=== PATIENT | male | born 1965 | race Caucasian/White ===

== ENCOUNTER 2023-08-22 06:03 | Day surgery (SDC) | payer OTHER, SELFPAY ==
[2023-08-14 10:00] VITALS: BMI 25.7
[2023-08-14 10:23] LABS: % Basophils 0.6 % (0-2); % Eosinophils 0.8 % (0-6); % Immature Granulocytes 0.4 % (0-0.5); % Lymphocytes 24.4 % (20.5-51.1); % Monocytes 8.7 % (1.7-9.3); % Neutrophils 65.1 % (42.2-75.2); Absolute Lymphocytes 1.3 10^3/uL (1.2-3.4); Absolute Monocytes 0.5 10^3/uL (0.1-0.6); Absolute Neutrophils 3.5 10^3/uL (1.4-6.5); Hematocrit 46.8 % (39.0-52.0); Mean Corp Hgb Conc. 34.2 g/dL (33.0-37.0); Mean Corpuscular Hgb 29.5 pg (27.0-31.0); Mean Corpuscular Volume 86.3 fL (80.0-94.0); Mean Platelet Volume 10.2 fL (7.4-10.4); Nucleated Red Blood Cells % 0 % (-); Platelet Count 235 10^3/uL (130-400); Red Blood Cell Count 5.42 10^6/uL (4.70-6.10); Red Cell Dist. Width 11.9 % (11.5-14.5); White Blood Cell Count 5.3 10^3/uL (4.8-10.8)
[2023-08-14 11:42] LABS: ALT (SGPT) 63 U/L (0-50); AST (SGOT) 38 U/L (17-59); Albumin 4.6 g/dl (3.5-5.0); Alkaline Phosphatase 92 U/L (38-126); Blood Urea Nitrogen 24 mg/dl (9-20); Calcium 9.7 mg/dl (8.4-10.2); Carbon Dioxide 29 mmol/L (22-30); Chloride 105 mmol/L (98-107); Estimated Creatinine Clearance 68 ml/min; Glucose 88 mg/dl (70-99); Potassium 4.6 mmol/L (3.5-5.1); Sodium 139 mmol/L (135-145); Total Bilirubin 0.8 mg/dl (0.2-1.3); Total Protein 7.3 g/dl (6.3-8.2); eGFR > 60.00
[2023-08-22] VITALS (13 sets, daily range): BP systolic 99–130; BP diastolic 65–89; BMI 25.4
[2023-08-22] MEDS: PLAVIX 600 MG PO (06:53)
[2023-08-22] MEDS: LOW STRENGTH ASPIRIN 81 MG PO (06:56)
--- NOTE | 2023-08-22 06:56 | ITS.CL.PN ---
Dishwasher - Procedure Note
Procedure
Procedure Note:
RIGHT HEART CATHETERIZATION (WITH SHUNT RUN) AND PATENT FORAMEN OVALE (PFO) CLOSURE
Date of procedure: August 22, 2023
Referring physician: Kenton Stack MD
Pre-op diagnosis: Cryptogenic stroke, presence of PFO
Post-op diagnosis: Cryptogenic stroke, presence of PFO
Indication: Cryptogenic stroke
Procedure performed: Percutaneous PFO closure with 25 mm Amplatzer Talisman PFO Occluder (REF #[id number] ; LOT #[id number])
cork sorter: Leeanne Sow MD, [facility], [facility]
Type of echocardiography: Intracardiac Echocardiography (ICE)
Access:
1.� Two 9 Cuban sheaths (9Fr x 11cm and 9Fr x 25cm) in the right common femoral vein using a micropuncture kit under US guidance.
RIGHT HEART CATHETERIZATION
Hemodynamics (mmHg):
RA (m) : 12
RV (s/d,m) : 34/9, 16
PA (s/d, m) : 31/16, 22
PCWP (m) : 15
PA saturation: 73.2% on room air
AO saturation non-invasively 95% on room air
RA saturation: 68.6% on room air
RV saturation: 72.1% on room air
PA Saturation: 73.2% on room air
High SVC Saturation: 77.6% on room air
Low SVC Saturation: 72.8% on room air
IVC Saturation: 76.8% on room air
KELLY saturation 96.8% on room air
�
Cardiac Output: 4.75 L/min by Anaya calculation
Cardiac Index : 2.63 L/min/m-2 by Anaya calculation
Pulmonary vascular resistance: 1.68 muller unit
Procedure:
The patient was brought to the interventional cardiology suite in fasting state. The patient was given 600 mg of clopidogrel and Ancef IV.� Bilateral femoral areas were prepped and draped in standard sterile fashion.
The right femoral vein was accessed about 1cm apart twice using a modified Seldinger technique and two 9 Cuban sheaths were placed 1 is below the other (short 9 Cuban by 11 cm on the top and a long 9 Cuban by 25 cm at the bottom.� Full dose IV
heparin was given to achieve an ACT greater than 300 seconds, which was maintained throughout the procedure.� After confirming that there was no step up on the shunt run by performing a right heart catheterization, ICE catheter was advanced through
the 9 Cuban by 25 cm venous sheath and basic images were obtained and saved including the view of the interatrial septum and the PFO seen by color Doppler.� Using ICE and fluoroscopy guidance, a 0.035' J wire was advanced from the right femoral
vein and up into the right atrium and a 6Fr. multipurpose catheter was advanced over this wire. The J-wire was removed and catheter was flushed.� A Ricketts wire was advanced through the multipurpose catheter and through multiple passes we attempted
to cross the PFO however were unsuccessful. At this time we switched out the Bentson wire for a angled glide wire and after multiple passes successfully were able to cross the PFO into the left atrium. The multipurpose catheter was advanced over
the angled Glidewire wire into the left upper pulmonary vein. The Glidewire was removed and the catheter was flushed.� A 0.035 superstiff Amplatz wire was advanced through the multipurpose catheter and into the left upper pulmonary vein.
The multipurpose catheter was removed. The 9 Cuban sheath was removed.� Based on the anatomy we decided to move forward with implantation of a 25 mm Amplatzer Talisman PFO Occluder device. On the back table, we turned our attention to prepping the
closure device. A 25 mm Amplatzer Talisman PFO Occluder device was placed in a bowl of heparinized saline. The Tuohy-Addie valve and its extension were appropriately flushed. The device was submerged in water and the valve and extension were slowly
flush with water while the occlusion device was retracted into it, ensuring that the device was completely de-aired.
The 8 Cuban Talisman delivery sheath was advanced over the Super Stiff Amplat'sz wire into the IVC. The dilator was retracted at this point to completely de-aired the system. The sheath itself was then advanced over the Super Stiff Amplatz wire
into the left atrium and the Super Stiff wire was taken out. The sheath was de-aired and flushed. We connected the sheath with the closure device assembly with a wet to wet connection. The occluder was advanced through the sheath and into the left
atrium. Left atrial disc was deployed. The entire assembly was retracted until the left atrial disc was firmly against the interatrial wall under fluoroscopy and ICE guidance. The right atrial disc was deployed under tension and allowed to settle on
the right atrial side of the septum.
Echocardiographic images were obtained in multiple views showing good placement of the occlusion device. The interatrial septum is clearly visible between the 2 discs. The discs do not appear to be interfering with the aorta. After performing
appropriate pushing and pulling of the device to ensure good placement ([place] wiggle), the device was released. Once again, echocardiography confirmed good placement. ICE catheter was then taken out.
The Talisman sheath and the 9Fr x 25mm sheath was removed from the right femoral vein and a [id number] suture was placed over access site with good hemostasis. Additional manual pressure was held for 10 minutes.� The patient tolerated the
procedure well with no acute complications.� He remained hemodynamically stable throughout the procedure.
Fluoro Time: 22.8 min, Dose: 122.86 mGy, DAP : 17.9 Gy.cm2
SEDATION: 97 minutes of procedural sedation was utilized. An independent medical screener was present to assist with and help manage the patient's level of consciousness and physiologic status.
Conclusions:
1.� Successful ICE guided percutaneous PFO closure with 25 mm Amplatzer Talisman PFO Occluder (REF #[id number] ; LOT #[id number]) with no acute complications.
Recommendations:
1.� Routine care post PFO closure.�
2.� Limited weight bearing for 2 days.
3.� DAPT with aspirin and clopdiogrel for 6 months, followed by aspirin indefinitely.
4.� Limited echocardiogram prior to discharge.�
5.� Removal of jhcsvd-el-cvhxu stitch prior to discharge.
6.� Repeat echocardiogram in 1 month with outpatient cardiology follow up.
Leeanne Sow MD, FACC, [facility]
[2023-08-22] MEDS: ANCEF 10 IV (07:08)
[2023-08-22 08:05] LABS: ACT-LR - POC 236 Seconds (116-155)
[2023-08-22 08:13] LABS: ACT-LR - POC 269 Seconds (116-155)
[2023-08-22 08:23] LABS: ACT-LR - POC 316 Seconds (116-155)
[2023-08-22 08:40] LABS: ACT-LR - POC 314 Seconds (116-155)
[2023-08-22 09:03] LABS: ACT-LR - POC 294 Seconds (116-155)
[2023-08-22] MEDS: ANCEF 5 IV (12:17)
--- NOTE | 2023-08-22 14:47 | W.PN.UPDATE ---
Update Note
Progress Note Update
57 yo WM s/p PFO closure (same day). He feels good, no cp, sob, shashank diet, voiding, amb w/o dizziness, R fem site c/d/i no HT, soft, EKG SR. Echo results pending. He will be on DAPT ASA/Plavix, continue statin. Activity restrictions reviewed. He will
have f/u Echo with bubble in 1 mo, then apt with Dr. Sow after. He is for d/c home after 3pm.
Conclusions:
1.� Successful ICE guided percutaneous PFO closure with 25 mm Amplatzer Talisman PFO Occluder (REF #[id number] ; LOT #[id number]) with no acute complications.
Recommendations:
1.� Routine care post PFO closure.�
2.� Limited weight bearing for 2 days.
3.� DAPT with aspirin and clopdiogrel for 6 months, followed by aspirin indefinitely.
4.� Limited echocardiogram prior to discharge.�
5.� Removal of xrscmd-yo-zvxal stitch prior to discharge.
6.� Repeat echocardiogram in 1 month with outpatient cardiology follow up.
== END 2023-08-22 16:00 | disposition home or self-care (01) ==
LOC: CATH 06:03
PROVIDERS: ATTENDING PHYSICIAN Internal Medicine Interventional Cardiology; FAMILY PHYSICIAN Nurse Practitioner Adult Health; OTHER PHYSICIAN Internal Medicine Cardiovascular Disease
DX: Q21.12 Patent foramen ovale (principal); E78.5 Hyperlipidemia, unspecified; I10 Essential (primary) hypertension; Z86.73 Personal history of transient ischemic attack (TIA), and cerebral infarction without residual deficits; Z79.82 Long term (current) use of aspirin; Z79.02 Long term (current) use of antithrombotics/antiplatelets
CPT/HCPCS: 93580; 99152; 99153; C1769; C1894; C1892; C1759; 93308; 36415; 80053; 85025; 85347; 93005

== ENCOUNTER 2023-08-24 10:13 | Emergency (ER) | payer OTHER, SELFPAY ==
[2023-08-24 10:17] VITALS: BP 144/90
[2023-08-24 10:42] VITALS: BMI 25.3
[2023-08-24 10:48] VITALS: BP 136/85
--- NOTE | 2023-08-24 10:50 | ED.GENMED ---
History of Present Illness
General
Chief Complaint: Cardiac Symptoms
Time Seen by Provider: 08/24/23 10:42
Travel History
Have you had any contact with someone who has COVID-19?: No
Do you have any symptoms of coronavirus? Fever > 100 degrees, chills, cough, shortness of breath, sore throat, loss of taste or smell, muscle aches, or headache?: No
History of Present Illness
History of Present Illness:
57-year-old male with history of hyperlipidemia presents to the emergency department for evaluation of chest pain and lightheadedness that began this morning. Patient underwent closure of a PFO 2 days ago at this hospital by Dr. Sow, states he
recovered well and had no symptoms yesterday. Reports of pleuritic pain that is worse when lying supine, rated as mild to moderate. Nonradiating. No fevers or chills. No coughing or shortness of breath. No leg swelling.
Past History
Past History
ED Past Medical History: Other (Meningitis at age 4)
ED Past Surgical History: Orthopedic (Rotator cuff)
Social History
Tobacco: Non-smoker
Alcohol: None
Drug: None
Personal:
Living: with family
Employment: Employed ([employer]ission[employer] in [employer])
Family History
Family History: Other (CVA)
Review of Systems
Review of Systems
Allergies reviewed?: Yes
All Other Systems: ROS reviewed and negative except as documented in HPI and ROS
Phy Exam
Physical Exam
Physical Exam:
GEN: Well appearing, NAD, WDWN
Eyes: PERRLA, EOMs intact, no scleral icterus
HENT: NCAT, oral mucosa moist
Lungs: CTAB, no wheezes, rales, rhonchi, normal chest wall excursion
Cardiac: RRR, no M/R/G, no peripheral edema. Radial pulses 2+ bilat
Neuro: AO x 3, no focal deficits to BUE/BLE, normal sensation throughout
MSK: No gross deformity or ecchymosis.
Skin: No rashes, petechiae. Normal color, no pallor or jaundice.
Psych: Calm, cooperative, proper hygiene
Course
Orders/Labs/Results
Orders:
Orders
08/24/23 10:21
Electrocardiogram (*1) Urgent
Reason for Study: Chest Pain
EKG- Treatment ONCE
08/24/23 10:58
CMP [Comprehensive Metabolic Panel] Urgent
Complete Blood Count/With Diff Urgent
Erythrocyte Sed Rate Urgent
Comment: SED RATE ADDED ON BY FLOOR 1:20PM 08-24-23
Troponin I Urgent
08/24/23 11:40
Echo 2D MMode Color/Doppler Stat
Reason for Study: chest pain post PFO closure
Cardiology Consult: Gunnar Medeiros
08/24/23 12:05
CR Chest - 2 Views Urgent
Comment:
Reason For Exam: chest pain
08/24/23 13:21
Add On- LAB Routine
Tests Added?: sed rate
Abnormal Lab Results
08/24/23
10:58
MPV 10.5 H fL
(7.4-10.4)
Absolute Lymphs (auto) 1.0 L 10^3/uL
(1.2-3.4)
Absolute Monos (auto) 0.7 H 10^3/uL
(0.1-0.6)
Lymphocytes % 13.9 L %
(20.5-51.1)
Monocytes % 10.0 H %
(1.7-9.3)
ALT 51 H U/L
(0-50)
08/24/23 10:58
08/24/23 10:58
Vital Signs
Initial and Last Documented VS:
Initial Vital Signs
Temp Pulse Resp BP Pulse Ox
98 F 80 16 144/90 99
08/24/23 10:17 08/24/23 10:17 08/24/23 10:17 08/24/23 10:17 08/24/23 10:17
Last Documented Vital Signs
Temp Pulse Resp BP Pulse Ox
98 F 75 17 119/102 96
08/24/23 10:17 08/24/23 12:45 08/24/23 12:45 08/24/23 12:00 08/24/23 12:45
MDM/Problems Addressed
MDM/Problems Addressed:
Patient's clinical presentation is consistent with mild acute pericarditis. His labs are reassuring. I did discuss the case with cardiology and the patient was sent for an urgent echocardiogram to rule out a pericardial effusion. This echo was
negative. He was seen at the bedside by cardiology, after discussion with him we will start the patient on once daily colchicine and increase his aspirin from 81 mg to 325 daily for the next month. They will follow-up with him next month
Comment
Comment:
Initial EKG independently interpreted by me shows normal sinus rhythm at a rate of [address] changes concerning for ischemia, QTc of 407
*Critical Care Note
Total Time (30-74mins, 75-104mins- exclusive of procedures): Not Applicable
ED Attending Note
-
Portions of this chart may have been created with voice recognition software.� Occasional wrong word or��sound alike� substitutions may have occurred due to the inherent limitations of voice recognition software.
Discharge Plan
Departure
Patient Disposition: Home (Routine Discharge)
Date of Disposition: 08/24/23
Time of Disposition: 13:48
Patient with high blood pressure during this ER visit?: No
Discharge Problem:
Pericarditis
Instructions: Pericarditis
Prescriptions:
New
colchicine 0.6 mg tablet
0.6 mg PO DAILY Qty: 30 0RF
aspirin 325 mg tablet
325 mg PO DAILY Qty: 30 0RF
No Action
atorvastatin 80 mg Tablet
80 mg PO DAILY
aspirin 81 mg Capsule
81 mg PO DAILY
clopidogrel [Plavix] 75 mg tablet
75 mg PO DAILY Qty: 90 2RF
Referrals:
[facility] [Provider Group] - 09/26/23 (You are scheduled for an echo at [facility]. Please call with questions. )
Frida Reeder CRNP [Family Provider] -
Leeanne Sow MD [Active] - 09/28/23 3:00 pm (You have a follow up visit with Dr. Sow at [facility]. Please call with questions. )
Activity Restrictions/Additional Instructions:
Stop taking 81 mg aspirin we will switch you to 325 mg daily
Begin colchicine 0.6 mg daily
Follow-up with cardiology as directed
Interventions
Interventions:
*Risk Screen - Suicide Last Done: 08/24/23 10:55
*General Assessment Last Done: 08/24/23 10:42
*Neglect/Abuse Screening Last Done: 08/24/23 10:55
ED- Fall Risk Assessment Last Done: 08/24/23 14:32
*ED COVID-19 Vaccine History Last Done: 08/24/23 10:42
*Nursing Disposition Last Done: 08/24/23 14:32
ED- Pulmonary Assessment Last Done: 08/24/23 10:42
ED- Cardiac Assessment Last Done: 08/24/23 10:42
Discharge Date and Time
Discharge Date/Time: 08/24/23 14:33
[2023-08-24 11:00] VITALS: BP 120/80
[2023-08-24 11:07] LABS: % Basophils 0.3 % (0-2); % Eosinophils 0.4 % (0-6); % Immature Granulocytes 0.4 % (0-0.5); % Lymphocytes 13.9 % (20.5-51.1); Absolute Monocytes 0.7 10^3/uL (0.1-0.6); Absolute Neutrophils 5.1 10^3/uL (1.4-6.5); Hematocrit 46.3 % (39.0-52.0); Mean Corp Hgb Conc. 34.6 g/dL (33.0-37.0); Mean Corpuscular Hgb 30.1 pg (27.0-31.0); Mean Corpuscular Volume 87.2 fL (80.0-94.0); Mean Platelet Volume 10.5 fL (7.4-10.4); Nucleated Red Blood Cells % 0 % (-); Platelet Count 206 10^3/uL (130-400); Red Blood Cell Count 5.31 10^6/uL (4.70-6.10); Red Cell Dist. Width 11.6 % (11.5-14.5); White Blood Cell Count 6.8 10^3/uL (4.8-10.8)
[2023-08-24 11:18] LABS: ALT (SGPT) 51 U/L (0-50); AST (SGOT) 37 U/L (17-59); Albumin 4.6 g/dl (3.5-5.0); Alkaline Phosphatase 91 U/L (38-126); Blood Urea Nitrogen 17 mg/dl (9-20); Calcium 9.5 mg/dl (8.4-10.2); Carbon Dioxide 27 mmol/L (22-30); Chloride 106 mmol/L (98-107); Estimated Creatinine Clearance 78 ml/min; Glucose 93 mg/dl (70-99); Potassium 4.6 mmol/L (3.5-5.1); Sodium 138 mmol/L (135-145); Total Bilirubin 0.6 mg/dl (0.2-1.3); Total Protein 7.3 g/dl (6.3-8.2); eGFR > 60.00
[2023-08-24 11:26] LABS: Troponin I < 0.012 ng/ml
[2023-08-24 12:00] VITALS: BP 119/102
--- NOTE | 2023-08-24 12:05 | CON.CAR ---
Addendum entered and electronically signed by Gunnar Ramírez MD 08/24/23 14:21:
Attending addendum: Patient seen and examined. PA note reviewed and findings independently confirmed by me. I briefly reviewed the angiographic images from his PFO closure as well and has the recent echocardiogram. The patient developed vague
chest discomfort that is somewhat pleuritic in nature. His x-ray, echocardiogram, and clinical exam is rather benign. The symptoms do have a pleuritic component somewhat and we will try increasing his aspirin from 81 to 325 mg daily for the next
week or so as well as beginning a trial of colchicine 0.6 mg p.o. daily to see if his symptoms improved. Can always titrate the colchicine further.
Original Note:
Consultation
Consultation Request
Date/Time Consultation Requested: 08/24/2023
Date/Time Consultation Performed: 08/24/2023 at 1230
Requesting Provider: Dr. Guerrero
Performing Provider: Dr. ERICK Medeiros
Reason for Consultation: Chest pain following PFO closure
Medical History
-
History of Present Illness:
HPI: Maynor is a 57-year-old male with past medical history of ischemic stroke and PFO status post PFO closure 08/22/2023. He presents to ER for evaluation of chest pain. He has been recovering at home following his recent PFO closure and has been
doing well, however this morning when he woke up he noted mild substernal chest discomfort that was pleuritic in nature. He admitted that he had been coughing more over the past few days. He also admitted to intermittent lightheadedness. Given
chest discomfort and recent procedure, he was recommended to come to the ER for evaluation and urgent echocardiogram. At this time he continues to have pain that has been unchanged since onset, worse with deep breaths.
PMH:
PFO
s/p percutaneous PFO closure with 25 mm Amplatzer Talisman PFO Occluder 08/22/2023
h/o ischemic stroke 04/2023
Past Medical History
Past Medical History: Other (In HPI)
Past Surgical History: Cardiac (PFO closure 08/22/2023) and Other (Rotator cuff repair)
Social History
Tobacco: Non-Smoker
Alcohol: None
Drug: None
Personal:
Living: With Family
Employment: Employed
Family History
Family History: CAD
Allergies / Home Medications
Allergy/AdvReac Type Severity Reaction Status Date / Time
No Known Drug Allergies Allergy Unknown Verified 08/24/23 10:15
Medication Instructions Recorded Confirmed Type
aspirin 81 mg capsule 81 mg PO DAILY 08/09/23 08/22/23 History
atorvastatin 80 mg tablet 80 mg PO DAILY 08/09/23 08/22/23 History
clopidogrel 75 mg tablet (Plavix) 75 mg PO DAILY #90 tabs 08/22/23 Rx
Review of Systems
-
History Source: Patient
All other systems: Negative unless noted
Physical Exam
Vital Signs
Temp Pulse Resp BP Pulse Ox
98 F 77 18 120/80 96
08/24/23 10:17 08/24/23 11:15 08/24/23 11:15 08/24/23 11:00 08/24/23 11:15
Lab Results
08/24/23 10:58
08/24/23 10:58
Troponin I < 0.012 ng/ml 08/24/23 10:58
Physical Exam
General: Well Developed, Well Nourished and No Apparent Distress
HEENT: Normocephalic, Anicteric and Moist Mucous Membranes
Respiratory: Clear and Non Labored Respirations
Cardiac: S1/S2 and Regular Rhythm
Musculoskeletal: No Clubbing, No Cyanosis and No Edema
Skin: Warm and Dry
Neuro: AO x 3 and Nonfocal/Grossly Intact
Psych: Calm
Impression / Plan
-
PCP: ERON Espana
Cardiology: Dr. Sow
Impression:
Presented with chest pain
PFO
s/p percutaneous PFO closure with 25 mm Amplatzer Talisman PFO Occluder 08/22/2023
h/o ischemic stroke 04/2023
Echo 08/22/2023: EF 55 to 60%, no significant valvular disease, status post Amplatzer device w/ no evidence of shunting by color-flow Doppler
Echo 08/24/2023: EF 62%, no RWMA, no significant valvular disease, no pericardial effusion
Plan:
-Presented with chest pain that is pleuritic in nature. Started this AM. Given recent PFO closure 08/22/2023, he was recommended to come to the ER for evaluation.
-continues to have mild pain that is unchanged. Initial troponin negative. EKG reviewed and shows sinus rhythm with no acute ischemic changes. Stable from prior.
-Urgent echo completed and without evidence of pericardial effusion.
-Chest xray with no acute findings
-Lab work otherwise unremarkable with normal blood count, kidney function, liver function, and electrolytes.
-With pleuritic pain, will start on colchicine 0.6mg daily which he should continue until he is seen in follow up
-Check sed rate
-Will also increase aspirin to full dose 324 mg daily for 1 week. After 1 week, can go back to aspirin 81mg daily. Continue Plavix 75mg daily.
-Continue lipitor.
-Dr. Sow will call patient next week to follow up and see how patient is doing.
-Follow up appointment and follow up echo have been arranged.
HPI: Maynor is a 57-year-old male with past medical history of ischemic stroke and PFO status post PFO closure 08/22/2023. He presents to ER for evaluation of chest pain. He has been recovering at home following his recent PFO closure and has been
doing well, however this morning when he woke up he noted mild substernal chest discomfort that was pleuritic in nature. He admitted that he had been coughing more over the past few days. He also admitted to intermittent lightheadedness. Given
chest discomfort and recent procedure, he was recommended to come to the ER for evaluation and urgent echocardiogram. At this time he continues to have pain that has been unchanged since onset, worse with deep breaths.
Data Reviewed
-
EKG: Tracing Personally Visualized and interpreted
Radiology: Report Reviewed by me
Medical Tests (Nuc Med, Echo etc): Report Reviewed by me
Labs: Labs Reviewed by me
Old Records: Reviewed
[2023-08-24 14:11] LABS: Erythrocyte Sed Rate 11 mm/hour (0-20)
== END 2023-08-24 14:33 | disposition home or self-care (01) ==
LOC: EMR 10:13
PROVIDERS: Physician Assistant; EMERGENCY PHYSICIAN Emergency Medicine; FAMILY PHYSICIAN Nurse Practitioner Adult Health; OTHER PHYSICIAN Internal Medicine Interventional Cardiology
DX: I31.9 Disease of pericardium, unspecified (principal); R42 Dizziness and giddiness; R07.81 Pleurodynia; R07.89 Other chest pain; E78.5 Hyperlipidemia, unspecified; Z98.890 Other specified postprocedural states; Z86.61 Personal history of infections of the central nervous system; Z86.73 Personal history of transient ischemic attack (TIA), and cerebral infarction without residual deficits; Z79.02 Long term (current) use of antithrombotics/antiplatelets; Z79.82 Long term (current) use of aspirin
CPT/HCPCS: 99284; 71046; 80053; 84484; 85025; 85652; 93005; 93306

== ENCOUNTER 2023-09-18 13:40 | Emergency (ER) | payer OTHER, SELFPAY ==
[2023-09-18 13:42] VITALS: BP 167/88
--- NOTE | 2023-09-18 16:15 | ED.GENMED ---
History of Present Illness
<Cathy Coleman PA-C - Last Filed: 09/18/23 19:19>
General
Chief Complaint: Headache
Source: patient
Exam Limitations: none
Time Seen by Provider: 09/18/23 15:54
Nursing documentation reviewed up to this point in time: agreed with
Travel History
Have you had any contact with someone who has COVID-19?: No
Do you have any symptoms of coronavirus? Fever > 100 degrees, chills, cough, shortness of breath, sore throat, loss of taste or smell, muscle aches, or headache?: No
History of Present Illness
History of Present Illness:
58-year-old male with a past medical history of hypercholesterolemia, CVA, PFO s/p repair presenting to the emergency department today with an occipital headache x 1 day, and acute on chronic brain fog for the past 3 days. He states that his
headache started this morning upon awakening, and has been constant. He has not taken anything for the pain. He describes a brain fog as short-term memory issues as well as trouble focusing while reading or doing work. He also states that
occasionally the words when he reads will be a bit blurry. He denies any other visual changes. He denies any head trauma. He states that when he had a stroke back in April 2023, it felt similar to this except at that time, he did have
significant dysarthria. He denies chest pain, shortness of breath, syncopal episodes, nausea or vomiting, fevers or chills. He notes that last year, he went to [place] for a mission trip in April when he started developing a stroke symptoms and had
to be rushed out of [facility] to [facility]. He has since been struggling with PTSD like symptoms, and was recently diagnosed with mild cognitive impairment by a neuropsychologist few weeks ago. He voices current symptoms may be related to anxiety. He
states that he has a lot of stress in his life recently.
Past History
<Cathy Coleman PA-C - Last Filed: 09/18/23 19:19>
Past History
ED Past Medical History: Other (Meningitis at age 4)
ED Past Surgical History: Orthopedic (Rotator cuff)
Social History
Tobacco: Non-smoker
Alcohol: None
Drug: None
Personal:
Living: with family
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
Family History
Family History: Other (CVA)
Review of Systems
<Cathy Coleman PA-C - Last Filed: 09/18/23 19:19>
Review of Systems
All Other Systems: ROS reviewed and negative except as documented in HPI and ROS
Phy Exam
<Cathy Coleman PA-C - Last Filed: 09/18/23 19:19>
Physical Exam
Physical Exam:
General: Patient is well-appearing in no acute distress
Skin: Warm and dry, no rashes or lesions
Head: Atraumatic, normocephalic, nontender to palpation
Cardiac: Regular rate and rhythm, no murmurs
Pulm: Normal respiratory effort, no wheezes rales or rhonchi
Abdomen: No abdominal tenderness
Neuro: Patient alert and oriented. Cranial nerves II through XII intact. No focal neurologic deficits, finger-nose, [id number] testing intact. Negative pronator drift, Romberg.
Course
<Cathy Coleman PA-C - Last Filed: 09/18/23 19:19>
Orders/Labs/Results
Orders:
Orders
09/18/23 16:12
CT Head W/o Iv Contrast Urgent
Comment:
Reason For Exam: occipital headache, visual changes
09/18/23 16:44
Complete Blood Count/With Diff Urgent
Comprehensive Metabolic Panel Urgent
Abnormal Lab Results
09/18/23
16:44
Lymphocytes % 18.3 L %
(20.5-51.1)
09/18/23 16:44
09/18/23 16:44
Vital Signs
Initial and Last Documented VS:
Initial Vital Signs
Temp Pulse Resp BP Pulse Ox
98.2 F 79 18 167/88 98
09/18/23 13:42 09/18/23 13:42 09/18/23 13:42 09/18/23 13:42 09/18/23 13:42
Last Documented Vital Signs
Temp Pulse Resp BP Pulse Ox
98.2 F 77 18 110/81 96
09/18/23 13:42 09/18/23 18:42 09/18/23 18:42 09/18/23 18:42 09/18/23 18:42
<Shahab Ramirez, DO - Last Filed: 09/18/23 16:36>
Orders/Labs/Results
Orders:
Orders
09/18/23 16:12
CT Head W/o Iv Contrast Urgent
Comment:
Reason For Exam: occipital headache, visual changes
09/18/23 16:44
Complete Blood Count/With Diff Urgent
Comprehensive Metabolic Panel Urgent
Abnormal Lab Results
09/18/23
16:44
Lymphocytes % 18.3 L %
(20.5-51.1)
09/18/23 16:44
09/18/23 16:44
Vital Signs
Initial and Last Documented VS:
Initial Vital Signs
Temp Pulse Resp BP Pulse Ox
98.2 F 79 18 167/88 98
09/18/23 13:42 09/18/23 13:42 09/18/23 13:42 09/18/23 13:42 09/18/23 13:42
Last Documented Vital Signs
Temp Pulse Resp BP Pulse Ox
98.2 F 77 18 110/81 96
09/18/23 13:42 09/18/23 18:42 09/18/23 18:42 09/18/23 18:42 09/18/23 18:42
<Cathy Coleman PA-C - Last Filed: 09/18/23 19:19>
MDM/Problems Addressed
Differential Diagnosis Includes:
Differentials include CVA, TIA, tension headache, cluster headache, influenza, PTSD, anxiety
MDM/Problems Addressed:
will check CBC, CMP, CT head ---tylenol given for headache
Chronic conditions affecting care: HTN and Neurological disorder (CVA)
Acute Exacerbation and/or Progression of Chronic Illness: HTN
<Cathy Coleman PA-C - Last Filed: 09/18/23 19:19>
*Pulse Oximetry
Patient hypoxic: no
*Critical Care Note
Total Time (30-74mins, 75-104mins- exclusive of procedures): Not Applicable
Data Reviewed
Review of Other/Old Records Reveals: Records (Reviewed records from patient phone from [facility], reviewed ER physician documentation in [facility]) and Discharge Summary
Source: patient and family
Prescriptions/Medications Considered But Not Given:
Consider additional medication for pain control however, patient states that he is comfortable at this time
<Cathy Coleman PA-C - Last Filed: 09/18/23 19:19>
Patient Management
Escalation/DeEscalation of care consider admission/obs:
58-year-old male with a past medical history of CVA, PFO status postrepair presenting to the emergency department today with brain fog and occipital headache. He states his current symptoms are similar to 2 symptoms he had with the stroke, minus
the dysarthria. Patient's physical exam is unremarkable for any acute focal neurologic deficit or cranial nerve abnormality. Here in the emergency department, his CBC and CMP are unremarkable, and his CT of the head does not show any acute
intracranial abnormality, but did show his previous stroke. I have considered possibility of admission for TIA workup, however patient is on aspirin, atorvastatin, Plavix for many months now and had his PFO repaired. Additionally, patient states
that his current symptoms are consistent with his symptoms he has been having the past few months, and believes it may be due to PTSD or his anxiety and feeling recently. Advised patient to return if he has acute worsening of symptoms or any new
symptoms. I advised patient to follow-up with his neurologist soon as possible and continue to see his counselor for his PTSD symptoms. Patient aware of plan, patient prefers to go home and not stay for additional workup
ED Attending Note
<Cathy Coleman PA-C - Last Filed: 09/18/23 19:19>
-
Portions of this chart may have been created with voice recognition software.� Occasional wrong word or��sound alike� substitutions may have occurred due to the inherent limitations of voice recognition software.
<Shahab Ramirez DO - Last Filed: 09/18/23 16:36>
ED Attending Note
Patient seen and examined by attending physician: Yes
I performed a history and physical exam of patient and discussed management with resident, I reviewed resident's note and agree with documented findings and plan of care.: Yes
ED Attending Note:
I have reviewed and agree with history and treatment plan by Cathy Coleman. My exam
Physical Exam
General: no apparent distress, not acutely ill
Neck: supple. no meningeal signs. normal posterior pharynx
Heart: s1/s2 regular rate and rhythm, no murmur. equal radial
pulses.
HEENT: Pupils equal round reactive to light, EOMI
Lungs: no acute respiratory distress. clear bilaterally
Abdomen: normal bowel sounds. not tender. no CVAT
Neuro: alert and oriented. no focal neurological deficits cranial nerves II through XII intact
Skin: no rash
Psychiatric: well kept. interactive and cooperative
Extremities: no edema. no calf tenderness. negative homans. good distal pulses
No specific neurologic deficit, patient notes some fogginess and posterior headache with similar presentation to previous CVA. CT head pending.
Discharge Plan
Departure
Patient Disposition: Home (Routine Discharge)
Date of Disposition: 09/18/23
Time of Disposition: 18:26
Patient with high blood pressure during this ER visit?: Yes
Condition: Good
Discharge Problem:
Headache
Instructions: Headache, Adult (DC), BLOOD PRESSURE
Prescriptions:
No Action
atorvastatin 80 mg Tablet
80 mg PO DAILY
aspirin 81 mg Capsule
81 mg PO DAILY
clopidogrel [Plavix] 75 mg tablet
75 mg PO DAILY Qty: 90 2RF
colchicine 0.6 mg tablet
0.6 mg PO DAILY Qty: 30 0RF
aspirin 325 mg tablet
325 mg PO DAILY Qty: 30 0RF
Referrals:
Frida Reeder CRNP [Family Provider] -
Ayde Conde DO [Active] - Call in 1-3 days for appt
Activity Restrictions/Additional Instructions:
Please follow-up with your neurologist and your counselor.
Please return emergency department should you experience difficulty speaking, confusion, lightheadedness, motor weakness, numbness or tingling, or other concerning signs or symptoms.
Interventions
Interventions:
*Risk Screen - Suicide Last Done: 09/18/23 16:00
*General Assessment Last Done: 09/18/23 16:48
*Neglect/Abuse Screening Last Done: 09/18/23 16:00
ED- Fall Risk Assessment Last Done: 09/18/23 18:44
*ED COVID-19 Vaccine History Last Done: 09/18/23 16:48
*Nursing Disposition Last Done: 09/18/23 18:44
ED- Neurological Assessment Last Done: 09/18/23 16:46
Discharge Date and Time
Discharge Date/Time: 09/18/23 18:47
[2023-09-18 16:56] LABS: % Basophils 0.4 % (0-2); % Eosinophils 0.5 % (0-6); % Immature Granulocytes 0.1 % (0-0.5); % Lymphocytes 18.3 % (20.5-51.1); % Monocytes 7.5 % (1.7-9.3); % Neutrophils 73.2 % (42.2-75.2); Absolute Lymphocytes 1.4 10^3/uL (1.2-3.4); Absolute Monocytes 0.6 10^3/uL (0.1-0.6); Absolute Neutrophils 5.6 10^3/uL (1.4-6.5); Hematocrit 44.2 % (39.0-52.0); Hemoglobin 15.4 g/dL (13.0-18.0); Mean Corp Hgb Conc. 34.8 g/dL (33.0-37.0); Mean Corpuscular Hgb 30.1 pg (27.0-31.0); Mean Corpuscular Volume 86.3 fL (80.0-94.0); Mean Platelet Volume 10.3 fL (7.4-10.4); Nucleated Red Blood Cells % 0 % (-); Platelet Count 196 10^3/uL (130-400); Red Blood Cell Count 5.12 10^6/uL (4.70-6.10); Red Cell Dist. Width 11.7 % (11.5-14.5); White Blood Cell Count 7.7 10^3/uL (4.8-10.8)
[2023-09-18 17:17] LABS: ALT (SGPT) 39 U/L (0-50); AST (SGOT) 33 U/L (17-59); Albumin 4.4 g/dl (3.5-5.0); Alkaline Phosphatase 90 U/L (38-126); Blood Urea Nitrogen 20 mg/dl (9-20); Calcium 9.2 mg/dl (8.4-10.2); Carbon Dioxide 24 mmol/L (22-30); Chloride 107 mmol/L (98-107); Glucose 92 mg/dl (70-99); Potassium 4.2 mmol/L (3.5-5.1); Sodium 137 mmol/L (135-145); Total Bilirubin 0.5 mg/dl (0.2-1.3); Total Protein 6.8 g/dl (6.3-8.2); eGFR > 60.00
[2023-09-18 18:42] VITALS: BP 110/81
== END 2023-09-18 18:47 | disposition home or self-care (01) ==
LOC: EMR 13:40
PROVIDERS: Physician Assistant; EMERGENCY PHYSICIAN Emergency Medicine; FAMILY PHYSICIAN Nurse Practitioner Adult Health
DX: R51.9 Headache, unspecified (principal); E78.00 Pure hypercholesterolemia, unspecified; I10 Essential (primary) hypertension; Z82.3 Family history of stroke; Z86.73 Personal history of transient ischemic attack (TIA), and cerebral infarction without residual deficits; Z87.74 Personal history of (corrected) congenital malformations of heart and circulatory system
CPT/HCPCS: 99284; 70450; 80053; 85025

== ENCOUNTER → 2023-09-26 08:18 | Outpatient (REF) | payer OTHER, SELFPAY | LOC: RCS 08:18 | PROVIDERS: ATTENDING PHYSICIAN Internal Medicine Interventional Cardiology; FAMILY PHYSICIAN Nurse Practitioner Adult Health | DX: Q21.12 Patent foramen ovale (principal) | CPT/HCPCS: 93307 ==

== ENCOUNTER → 2024-02-27 08:26 | Outpatient (REF) | payer OTHER, SELFPAY | LOC: RCS 08:26 | PROVIDERS: ATTENDING PHYSICIAN Internal Medicine Interventional Cardiology; FAMILY PHYSICIAN Nurse Practitioner Adult Health | DX: I63.9 Cerebral infarction, unspecified (principal); Q21.12 Patent foramen ovale | CPT/HCPCS: 93306 ==